=== PATIENT | female | born 1980 | race Caucasian/White ===

== ENCOUNTER 2018-10-30 18:35 | Emergency (ER) | payer BC, MEDICAID ==
[~2018-10-30] VITALS: Ht 160 cm; Wt 62.7 kg
[2018-10-30 18:49] VITALS: BP 128/79
[2018-10-30] MEDS ORDERED: CEPH-571 PO (19:17)
[2018-10-30] MEDS ORDERED: SULF1TAB49 PO (19:17)
--- NOTE | 2018-10-30 19:18 | NUR ---
OUTLINED WOUND WITH A SKIN PEN 1 CM OUT FROM CURRENT REDNESS.
== END 2018-10-30 19:30 | disposition home or self-care (01) ==
LOC: ER 18:35
DX: S70.362A Insect bite (nonvenomous), left thigh, initial encounter (principal); F12.90 Cannabis use, unspecified, uncomplicated; Z86.73 Personal history of transient ischemic attack (TIA), and cerebral infarction without residual deficits; Z79.899 Other long term (current) drug therapy; W57.XXXA Bitten or stung by nonvenomous insect and other nonvenomous arthropods, initial encounter; Y93.89 Activity, other specified; Y92.89 Other specified places as the place of occurrence of the external cause; Y99.8 Other external cause status
CPT/HCPCS: 99283

== ENCOUNTER 2023-03-24 16:25 | Emergency (ER) | payer BC, MEDICAID ==
[~2023-03-24] VITALS: Ht 160 cm; Wt 66.4 kg
[~2023-03-24 16:25] MED LIST: CEPH-571 PO
[2023-03-24] MEDS ORDERED: NAPR-56 PO (18:29)
[2023-03-24] MEDS ORDERED: SULF1TAB49 PO (18:29)
[2023-03-24] MEDS ORDERED: CEPH-585 PO (18:29)
[2023-03-24 19:18] VITALS: BP 126/87; PULSE 77; RESP 18; TEMP 98.4; O2SAT 100
== END 2023-03-24 19:37 | disposition home or self-care (01) ==
LOC: ER 16:25
DX: S61.011A Laceration without foreign body of right thumb without damage to nail, initial encounter (principal); F12.10 Cannabis abuse, uncomplicated; X58.XXXA Exposure to other specified factors, initial encounter; Y93.89 Activity, other specified; Y92.89 Other specified places as the place of occurrence of the external cause; Y99.8 Other external cause status
CPT/HCPCS: 73140; 99283

== ENCOUNTER 2023-08-17 15:24 | Emergency (ER) | payer MEDICAID ==
[~2023-08-17] VITALS: Ht 160 cm; Wt 69.2 kg
[~2023-08-17 15:24] MED LIST changes: +CEPH-585 PO
[2023-08-17 15:33] VITALS: TEMP 98
[2023-08-17] MEDS ORDERED: ARIP5TAB31 PO (15:38)
[2023-08-17] MEDS ORDERED: IBUP-1985 PO (15:38)
[2023-08-17] MEDS ORDERED: BACL10TA2 PO (15:38)
[2023-08-17] MEDS ORDERED: BENZ2TAB65 PO (15:38)
[2023-08-17 16:13] LABS: BASOPHILS % (AUTO) 0.4 % (0-1); EOSINOPHILS # (AUTO) 0.3 X10'3 (0-0.9); EOSINOPHILS % (AUTO) 3.4 % (0-6); HEMATOCRIT 34.7 % (35.0-45.0); HEMOGLOBIN 11.6 g/dl (12.0-16.0); LYMPHOCYTES # (AUTO) 2.3 X10'3 (1.1-4.8); LYMPHOCYTES % (AUTO) 31.6 % (21-51); MEAN CORPUSCULAR HGB CONC 33.4 g/dL (33.0-36.5); MEAN CORPUSCULAR VOLUME 89.9 FL (78-98); MEAN PLATELET VOLUME 8.6 FL (7.4-10.4); MONOCYTES # (AUTO) 0.6 X10'3 (0-0.9); MONOCYTES % (AUTO) 7.9 % (2-12); NEUTROPHILS # (AUTO) 4.2 X10'3 (1.8-7.7); NEUTROPHILS % (AUTO) 56.7 % (42-75); PLATELET COUNT 282 X10'3 (140-440); RED BLOOD COUNT 3.86 X10'6 (4.20-5.60); RED CELL DISTRIBUTION WIDTH 16.3 % (11.5-14.5); WHITE BLOOD COUNT 7.4 X10'3 (4.5-11.0)
[2023-08-17 16:35] VITALS: BP 126/93; PULSE 90; RESP 14; O2SAT 100
[2023-08-17 16:36] LABS: ALBUMIN 3.9 G/DL (3.4-5.0); ANION GAP 4 (8-16); BLOOD UREA NITROGEN 5 MG/DL (7-18); BUN/CREATININE RATIO 8.1 (10.0-20.0); CHLORIDE 103 MMOL/L (99-107); CREATININE 0.62 MG/DL (0.40-0.90); GLUCOSE 124 MG/DL (70-104); POTASSIUM 3.5 MMOL/L (3.5-5.1); PRO BRAIN NATRIURETIC PEPTIDE 36 PG/ML (0-125); SODIUM 136 MMOL/L (135-145); TOTAL CARBON DIOXIDE 29.3 MMOL/L (24-32); eCRCL 95 ML/MIN; eGFR > 90 ML/MIN
== END 2023-08-17 16:37 | disposition home or self-care (01) ==
LOC: ER 15:28
DX: I10 Essential (primary) hypertension (principal); F12.90 Cannabis use, unspecified, uncomplicated; Z79.899 Other long term (current) drug therapy; Z79.1 Long term (current) use of non-steroidal anti-inflammatories (NSAID)
CPT/HCPCS: 36415; 71045; 80048; 83880; 84484; 85025; 93005; 99285

== ENCOUNTER 2025-03-22 10:36 | Emergency (ER) | payer MEDICAID, OTHER ==
[~2025-03-22] VITALS: Ht 160 cm; Wt 60.1 kg
[~2025-03-22 10:36] MED LIST changes: +ARIP5TAB53 PO; +BACL10TA2 PO; +BENZ2TAB65 PO; -CEPH-571 PO; -CEPH-585 PO; +IBUP600T52 PO
--- NOTE | 2025-03-22 10:44 | ELECTROCARDIOGRAPH REPORT ---
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 Go Martinez Measurements Intervals [place] Rate: 73 P: 83 ID: [id number] QRS: 80 QRSD: 79 T: 59 QT: 382 QTc: 421 Interpretive Statements Pacemaker spikes or artifacts Sinus rhythm Consider right atrial enlargement Electronically Signed On 03-23-2025 11:18:[address] Go Martinez Please click the below link to view image of tracing.
[2025-03-22 10:53] VITALS: TEMP 97.1
--- NOTE | 2025-03-22 10:57 | Physician Documentation ---
History of Present Illness ~ Chief Complaint: Cold, cough & congestion Stated Complaint: TROUBLE BREATHING Time Seen by MD: 14:35 Primary Medical Doctor: Marleny Source: patient Mode of Arrival: POV Exam Limitations: no limitations HPI 45-year-old with cold cough congestion took unknown antibiotic. Increased sh ortness of breath with cough. 45-year-old female presents with right-sided pleuritic chest pain for 1 week associated with persistent cough in the setting of upper respiratory infection. Patient reports cough, nasal congestion, sore throat (now improved to "scratchy"), and general malaise. Denies fever, chills, nausea, vomiting, or diarrhea. Medication Reconciliation Allergies: Coded Allergies: No Known Allergies (Unverified , 03/22/25) Scheduled Aripiprazole (Aripiprazole), 1 TAB PO DAILY, (Reported) Baclofen (Baclofen), 1 TAB PO BID, (Reported) Benztropine Mesylate (Benztropine Mesylate), 1 TAB PO DAILY, (Reported) Ibuprofen (Ibuprofen), 1 TAB PO TID, (Reported) Past Medical History Past Medical History: CVA/TIA/Stroke Alcohol Use: None Drug Use: marijuana Lives with: Family Lives In: Home Occupation: employed Review of Systems All Other Systems at this time: Reviewed and Negative ROS As stated above in the HPI, otherwise all systems are reviewed and negative. Respiratory: Reports: see HPI Physical Exam Vital Signs: Temperature: 97.1, Heart Rate: 70, Respiratory Rate: 18, BP: 146/79, Pulse Oximetry: 100, Weight: 60.100 Oxygen Flow Rate: 0 Physical Exam General: Alert, no apparent distress. HEENT: moist mucous membranes. Neck: Full range of motion. Respiratory: No respiratory distress speaking in full sentences, lung sounds clear to auscultation no wheezes inspiratory or expiratory rales crackles or rhonchi noted. Patient does appear mildly painful with inspiration in the lower right ribs. Chest: No accessory muscle use. Cardiovascular: Appears well perfused Neurologic: Oriented x4. Psychiatric: Normal mood and affect. Skin: Normal color, warm and dry. No edema, no ecchymosis. Progress Results/Orders Results/Orders Completed Orders - ARIADNE CLAUDIO Ketorolac Trometh 15mg/Ml Vial (Toradol (03/22/25 15:10) Acetaminophen 325mg Tablet (Tylenol Tabl (03/22/25 15:10) Methylprednisolone Sod Succ (Solumedrol (03/22/25 15:10) Vital Signs 03/22/25 03/22/25 10:53 14:53 Temp 97.1 Pulse 70 71 Resp 18 18 B/P (MAP) 146/79 148/87 (107) Pulse Ox 100 100 O2 Flow Rate 0 0 Laboratory Tests Test 03/22/25 14:42 Influenza Type A Antigen Negative Influenza Type B Antigen Negative Medical Decision Making Additional information obtaine: other Findings Chief Complaint: Right-sided rib pain with inspiration for 1 week History of Present Illness: 45-year-old female presents with right-sided pleuritic chest pain for 1 week associated with persistent cough in the setting of upper respiratory infection. Patient reports cough, nasal congestion, sore throat (now improved to "scratchy"), and general malaise. Denies fever, chills, nausea, vomiting, or diarrhea. Medical Decision Making: Number of Diagnoses/Management Options: Moderate complexity. Differential diagnosis for pleuritic chest pain includes musculoskeletal chest wall pain (costochondritis), pneumonia, pulmonary embolism, pericarditis, pneumothorax, and acute coronary syndrome. [1-3] Given the patient's age (45 years), presentation with chest wall pain, and absence of cardiac risk factors or cardiopulmonary symptoms beyond those attributable to upper respiratory infection, cardiac evaluation was pursued. Amount/Complexity of Data: Moderate complexity. Chest radiograph obtained to evaluate for pneumonia, pneumothorax, pleural effusion, and other pulmonary pathologynegative for acute findings. 12-lead ECG obtained to evaluate for cardiac ischemia, pericarditis, and other cardiac etiologiesnegative for acute findings. [1-2][4-5] Risk of Complications: Moderate risk. While the patient's presentation is most consistent with musculoskeletal chest wall pain from repetitive coughing, serious etiologies including acute coronary syndrome must be considered, as up to 12% of patients presenting with chest pain and chest wall tenderness may have acute myocardial infarction. [1] The patient's negative chest radiograph and ECG, combined with clinical presentation consistent with viral upper respiratory infection and musculoskeletal pain, support a benign diagnosis. Assessment and Plan: Musculoskeletal chest wall pain (costochondritis) secondary to persistent cough from viral upper respiratory infection. This is a common presentation in adults aged 40-50 years with slight female predominance. [1] The diagnosis is clinical, based on history of cough-induced pain and reproduction of pain with chest wall palpation. [1] Treatment Provided: Ketorolac (Toradol), methylprednisolone (Solu-Medrol), and acetaminophen 1 gram administered in the emergency department with significant improvement in symptoms. Patient now able to take full deep breath without pain. Discharge Plan: Multimodal analgesia: Scheduled NSAIDs and acetaminophen for pain control [1][6] Local heat application as needed [1] Activity modification: avoid activities that exacerbate chest wall pain [5] Pulmonary hygiene: deep breathing exercises to prevent atelectasis and pneumonia [6] Positional comfort: sleep in semi-upright or comfortable position to facilitate breathing Follow-up with primary care provider for persistent symptoms Return to emergency department for worsening symptoms, new fever, increasing dyspnea, or other concerning symptoms Prognosis: Most patients with costochondritis have complete resolution of symptoms within a few weeks with conservative therapy. [1] Overall Complexity: Moderate Differential Dx:Considerations: Include: Allergic rhinitis, Influenza, Otitis media, Peritonsillar abscess, Pharyngitis-Diphtheria, Pharyngitis-Streptoccal, Pharyngitis-Viral, Pneumonia, Pnuemonitis, Sinusitis, URI, Other Departure Disposition: 01 HOME / SELF CARE / HOMELESS Impression: Primary Impression: Costochondritis Condition: Stable Discharge Instructions: Chest Wall Pain, [id number], Cough, Adult Additional Instructions: Your Diagnosis: Rib pain (costochondritis) from coughing What This Means: You have inflammation of the rib cartilage caused by persistent coughing. This is a common condition that usually gets better in a few weeks with treatment. [1] Home Treatment: Pain Relief: Take ibuprofen (Advil, Motrin) 400-600 mg every 6-8 hours with food OR naproxen (Aleve) 220-440 mg every 8-12 hours with food Take acetaminophen (Tylenol) 650-1000 mg every 6 hours as needed You can take both ibuprofen/naproxen AND acetaminophen together for better pain control Apply heat to the painful area for 15-20 minutes several times daily [1] Breathing: Take deep breaths regularly - this is very important to prevent pneumonia Sleep propped up or in a comfortable position that allows you to breathe easier Do not hold your breath or take shallow breaths because of pain Activity: Avoid activities that make the pain worse Rest as needed but stay gently active What to Expect: Most people feel much better within 2-3 weeks. [1] The pain should gradually improve each day. When to Return to the Emergency Department: Go to the emergency department or call 911 if you develop: [2-4] Chest pain that feels different from your rib pain (pressure, squeezing, or heaviness) Shortness of breath that is getting worse Fever (temperature over 100.4F or 38C) Coughing up blood Severe pain not relieved by medication Dizziness, fainting, or feeling like you might pass out Rapid or irregular heartbeat Sweating with chest discomfort Pain spreading to your arm, jaw, neck, or back Follow-Up: See your primary care doctor within 1-2 weeks Call sooner if your symptoms are not improving after a few days Questions? If you have questions or concerns, contact your primary care provider. Referrals: NO PRIMARY CARE PROVIDER (PCP) Education Educated: Patient Educated regarding: diagnosis, treatment, need for follow up Signature Scribe Signature: A Attestation: Scribed for Ariadne Claudio by ALECIA Sheldon . 03/22/25 15:35 MAYA VANG NP Mar 22, 2025 10:57 ARIADNE CLAUDIO Mar 22, 2025 15:33
--- NOTE | 2025-03-22 11:47 | RADIOLOGY REPORT ---
CHEST RADIOGRAPH INDICATION: CP TECHNIQUE: Single frontal view of the chest was obtained COMPARISON: DI CHEST,SINGLE VIEW on DOS: 08/17/23 FINDINGS: Lines and Tubes: None Lungs: Clear Pleura: No effusion. No pneumothorax. Cardiomediastinal contours: Unremarkable Bones: Unremarkable IMPRESSION: 1. No acute disease.
[2025-03-22 15:08] LABS: INFLUENZA TYPE A ANTIGEN RAPID NEGATIVE (Negative); INFLUENZA TYPE B ANTIGEN RAPID NEGATIVE (Negative)
[2025-03-22] MEDS: ketorolac trometh 15mg/ml vial 15 MG/ML ML IM ONE (15:31)
[2025-03-22 16:10] VITALS: BP 125/84; PULSE 69; RESP 18; O2SAT 99
== END 2025-03-22 16:11 | disposition home or self-care (01) ==
LOC: ER 10:36
DX: M94.0 Chondrocostal junction syndrome [Tietze] (principal); F12.90 Cannabis use, unspecified, uncomplicated; Z95.0 Presence of cardiac pacemaker; Z86.73 Personal history of transient ischemic attack (TIA), and cerebral infarction without residual deficits; Z79.899 Other long term (current) drug therapy
CPT/HCPCS: 71045; 87804; 93005; 96372; 99285; J1885; J2919